=== PATIENT | female | born 1935 | race Two or more races ===

== ENCOUNTER 2023-01-14 17:31 | Inpatient (IN) | payer OTHER ==
[~2023-01-14] VITALS: Ht 137.2 cm; Wt 70.0 kg
[2023-01-14] MEDS ORDERED: SODIUM CHLORIDE 0.9% 1,000 ML IV ONE ×3 (18:00→22:15)
[2023-01-14 18:20] LABS: Basophils # (auto) 0.1 10 ^3/uL (0-0.2); Basophils % (auto) 0.5 % (0.0-2.0); Eosinophils # (auto) 0.1 10 ^3/uL (0-0.8); Eosinophils % (auto) 1.1 % (0.0-7.0); Hematocrit 50.1 % (36.0-46.0); Hemoglobin 16.8 g/dL (12.2-16.2); Lymphocytes # (auto) 1.7 10 ^3/uL (0.4-5.4); Lymphocytes % (auto) 14.9 % (10.0-50.0); Mean Corpuscular Hemoglobin 29.8 pg (28.0-32.0); Mean Corpuscular Hgb Conc. 33.4 g/dL (32.0-36.0); Mean Corpuscular Volume 89.2 fL (80.0-100.0); Monocytes # (auto) 0.5 10 ^3/uL (0-1.3); Monocytes % (auto) 4.7 % (0.0-12.0); Neutrophils # (auto) 9.1 10 ^3/uL (1.6-8.6); Neutrophils % (auto) 78.8 % (37.0-80.0); Nucleated Red Blood Cells % 0.4 %; Red Blood Cells 5.62 10^6/uL (4.0-5.20); Red Cell Distribution Width 15.7 % (11.8-14.3); White Blood Cell 11.5 10^3/uL (4.4-10.8)
[2023-01-14 18:44] LABS: Albumin 4.4 g/dL (3.2-4.8); Alkaline Phosphatase 74 U/L (46-116); Anion Gap 10 (5-15); Aspartate Aminotransferase 27 U/L (13-40); BUN/Creatinine Ratio 16.1 (10.0-20.0); Bilirubin, Total 1.2 mg/dL (0.2-1.0); Blood Urea Nitrogen 34 mg/dL (9-23); Calcium 9.4 mg/dL (8.7-10.4); Carbon Dioxide 25 mmol/L (20-30); Chloride 101 mmol/L (98-107); Glucose 166 mg/dL (74-106); Potassium 4.9 mmol/L (3.5-5.1); Sodium 136 mmol/L (136-145); Total Protein 7.8 g/dL (5.7-8.2)
[2023-01-14 18:48] LABS: Alanine Aminotransferase < 9 U/L (7-40)
[2023-01-14 19:44] LABS: Urine Bacteria MOD /hpf (None Seen); Urine Blood Negative /uL (Negative); Urine Clarity HAZY (Clear); Urine Color Colorless (Yellow); Urine Mucus FEW (None Seen); Urine Protein, UAD Negative (Negative); Urine Specific Gravity 1.011 (1.001-1.035); Urine Urobilinogen Normal (Negative); Urine WBC 59 /hpf (0 - 5)
[2023-01-14] MEDS ORDERED: ONDANSETRON HCL 4 MG/2 ML VIAL IV ONE (21:45)
[2023-01-14] MEDS ORDERED: cefTRIAXone 1GM/50ML D5W 50 ML IV SCH (21:45)
[2023-01-14] MEDS ORDERED: SODIUM CHLORIDE 0.9% 2,050 ML IV ONE (21:45)
[2023-01-14] MEDS ORDERED: ALBUMIN 25% 50 ML IV ONE (22:00)
[2023-01-14] MEDS ORDERED: MORPHINE SULFATE INJ 2 MG/ml SYRG IV PRN (22:30)
[2023-01-14] MEDS ORDERED: ONDANSETRON HCL 4 MG/2 ML VIAL IV PRN (22:30)
[2023-01-14] MEDS ORDERED: ALBUTEROL SULF 2.5 MG/0.5ML(0.5%) NEB SOLN NEB PRN (22:30)
[2023-01-14] MEDS ORDERED: NITROGLYCERIN 0.4 MG SL TAB SL PRN (22:30)
[2023-01-14] MEDS ORDERED: ACETAMINOPHEN 325 MG TAB PO PRN (22:30)
[2023-01-14 22:48] VITALS: BP 134/70; PULSE 80; RESP 18; O2SAT 97
[2023-01-14 22:57] LABS: INR 1.1 (0.9-1.15); Partial Thromboplastin Time 30.5 SEC (24.5-34.5); Prothrombin Time 11.5 sec (9.3-11.8)
[2023-01-14 23:12] VITALS: O2SAT 97
[2023-01-14] MEDS: cefTRIAXone 1GM/50ML D5W 50 ML IV SCH (23:16)
[2023-01-15] VITALS (9 sets, daily range): BP systolic 85–138; BP diastolic 49–85; PULSE 63–90; RESP 18–22; TEMP 97.6–98; O2SAT 90–97
[2023-01-15] MEDS: PIPERACILLIN-TAZOB 3.375GM 100 ML IV SCH ×2 (00:05→06:38)
[2023-01-15 05:33] LABS: Chloride 107 mmol/L (98-107); Potassium 4.9 mmol/L (3.5-5.1); Sodium 142 mmol/L (136-145)
[2023-01-15 05:34] LABS: Anion Gap 7 (5-15); Carbon Dioxide 28 mmol/L (20-30)
[2023-01-15 05:35] LABS: Calcium 8.8 mg/dL (8.5-10.1)
[2023-01-15 05:38] LABS: Basophils # (auto) 0 10 ^3/uL (0-0.2); Basophils % (auto) 0.5 % (0.0-2.0); Eosinophils # (auto) 0.2 10 ^3/uL (0-0.8); Eosinophils % (auto) 1.8 % (0.0-7.0); Hematocrit 45.4 % (36.0-46.0); Hemoglobin 15.2 g/dL (12.2-16.2); Lymphocytes # (auto) 1.5 10 ^3/uL (0.4-5.4); Lymphocytes % (auto) 16.7 % (10.0-50.0); Mean Corpuscular Hgb Conc. 33.4 g/dL (32.0-36.0); Mean Corpuscular Volume 89.8 fL (80.0-100.0); Monocytes # (auto) 0.5 10 ^3/uL (0-1.3); Monocytes % (auto) 5.5 % (0.0-12.0); Neutrophils # (auto) 6.8 10 ^3/uL (1.6-8.6); Neutrophils % (auto) 75.5 % (37.0-80.0); Nucleated Red Blood Cells % 0.1 %; Red Blood Cells 5.05 10^6/uL (4.0-5.20); Red Cell Distribution Width 15.6 % (11.8-14.3)
[2023-01-15 05:39] LABS: Glucose 78 mg/dL (74-106)
[2023-01-15 05:51] LABS: BUN/Creatinine Ratio 12.6 (10.0-20.0); Blood Urea Nitrogen 24 mg/dL (9-23)
[2023-01-15] MEDS ORDERED: LEV75T PO (08:15)
[2023-01-15] MEDS ORDERED: GLIP5TAB12 PO ×2 (08:15→17:07)
[2023-01-15] MEDS ORDERED: APIX2.5T PO ×2 (08:15→17:07)
[2023-01-15] MEDS ORDERED: POTA10TA51 PO ×2 (08:15→17:07)
[2023-01-15] MEDS ORDERED: LEV50T PO (08:15)
[2023-01-15] MEDS ORDERED: PRAV20TA3 PO ×2 (08:15→17:07)
[2023-01-15] MEDS ORDERED: FURO40TA4 PO ×2 (08:15→17:07)
[2023-01-15] MEDS ORDERED: METO25TA93 PO ×2 (08:15→17:07)
[2023-01-15] MEDS ORDERED: CLOP75TA70 PO ×2 (08:15→17:07)
[2023-01-15] MEDS: FUROSEMIDE 40 MG TAB PO SCH (10:00)
[2023-01-15] MEDS: APIXABAN 2.5 MG TAB PO SCH ×2 (10:02→21:11)
[2023-01-15] MEDS: cefTRIAXone 1GM/50ML D5W 50 ML IV SCH (10:03)
[2023-01-15] MEDS ORDERED: DEXTROSE (50%) 50ML SYRG IV PRN (13:15)
[2023-01-15 14:04] LABS: Folate (Folic Acid) 15.83 ng/mL (>5.38)
[2023-01-15 14:51] LABS: Triglycerides 182 mg/dL (< 150)
[2023-01-15 14:52] LABS: LDL Cholesterol 54 mg/dL (< 100)
[2023-01-15 14:53] LABS: Cholesterol 109 mg/dL (< 200); HDL Cholesterol 28 mg/dL (40-59)
[2023-01-15] MEDS: ACCU-CHEK COMFORT CURVE STRIP VI SCH ×2 (17:00→21:11)
[2023-01-15] MEDS: InsuLIN REG 1unit/0.01ml Soln (100units/ml) SC SCH ×2 (17:00→21:13)
[2023-01-15] MEDS ORDERED: LOSA50TA46 PO (17:07)
[2023-01-15] MEDS ORDERED: LISI-275 PO (17:07)
[2023-01-15 18:43] LABS: Creatinine, Urine 43.64 mg/dL (30.0-125.0)
[2023-01-15] MEDS: ATORVASTATIN 20 MG TAB PO SCH (21:11)
[2023-01-16] VITALS (10 sets, daily range): BP systolic 74–148; BP diastolic 41–80; PULSE 60–88; RESP 16–18; TEMP 97.5–98; O2SAT 93–97
[2023-01-16] MEDS: InsuLIN REG 1unit/0.01ml Soln (100units/ml) SC SCH ×4 (05:56→21:09)
[2023-01-16] MEDS: ACCU-CHEK COMFORT CURVE STRIP VI SCH ×4 (05:56→21:09)
[2023-01-16 06:25] LABS: Albumin 3.7 g/dL (3.2-4.8); Alkaline Phosphatase 60 U/L (46-116); Aspartate Aminotransferase 24 U/L (13-40); BUN/Creatinine Ratio 7.8 (10.0-20.0); Bilirubin, Total 1.4 mg/dL (0.2-1.0); Blood Urea Nitrogen 14 mg/dL (9-23); Calcium 8.9 mg/dL (8.7-10.4); Chloride 107 mmol/L (98-107); Glucose 97 mg/dL (74-106); Potassium 4.3 mmol/L (3.5-5.1); Sodium 140 mmol/L (136-145); Total Protein 6.7 g/dL (5.7-8.2)
[2023-01-16 06:29] LABS: Basophils # (auto) 0.1 10 ^3/uL (0-0.2); Basophils % (auto) 0.7 % (0.0-2.0); Eosinophils # (auto) 0.2 10 ^3/uL (0-0.8); Hematocrit 47.5 % (36.0-46.0); Hemoglobin 15.4 g/dL (12.2-16.2); Lymphocytes # (auto) 1.1 10 ^3/uL (0.4-5.4); Lymphocytes % (auto) 13.4 % (10.0-50.0); Mean Corpuscular Hemoglobin 29.7 pg (28.0-32.0); Mean Corpuscular Hgb Conc. 32.5 g/dL (32.0-36.0); Mean Corpuscular Volume 91.5 fL (80.0-100.0); Monocytes # (auto) 0.4 10 ^3/uL (0-1.3); Monocytes % (auto) 5.3 % (0.0-12.0); Neutrophils # (auto) 6.2 10 ^3/uL (1.6-8.6); Neutrophils % (auto) 78.6 % (37.0-80.0); Nucleated Red Blood Cells % 0.1 %; Red Blood Cells 5.19 10^6/uL (4.0-5.20); White Blood Cell 7.9 10^3/uL (4.4-10.8)
[2023-01-16 07:00] LABS: Alanine Aminotransferase < 9 U/L (7-40)
[2023-01-16 07:19] LABS: Anion Gap 10 (5-15); Carbon Dioxide 23 mmol/L (20-30)
[2023-01-16] MEDS: LEVOTHYROXINE SODIUM 50 MCG TAB PO SCH (08:32)
[2023-01-16] MEDS: LEVOTHYROXINE SODIUM 25 MCG TAB PO SCH (08:32)
[2023-01-16] MEDS: FUROSEMIDE 40 MG TAB PO SCH (08:33)
[2023-01-16] MEDS: APIXABAN 2.5 MG TAB PO SCH ×2 (08:35→21:09)
[2023-01-16] MEDS: guaiFENesin-DM 100/10mg/5ml SYR PO SCH ×4 (09:39→18:00)
[2023-01-16] MEDS: cefTRIAXone 1GM/50ML D5W 50 ML IV SCH (09:39)
[2023-01-16] MEDS ORDERED: LEVOTHYROXINE SODIUM 50 MCG TAB PO SCH (10:00)
[2023-01-16] MEDS ORDERED: LEVOTHYROXINE SODIUM 25 MCG TAB PO SCH (10:00)
[2023-01-16] MEDS ORDERED: PRAVASTATIN SODIUM 20 MG TAB PO SCH (10:00)
[2023-01-16] MEDS: METOPROLOL SUCCINATE XL 50 MG TAB PO SCH (10:28)
[2023-01-16] MEDS: LISINOPRIL 5 MG TAB PO SCH (11:43)
[2023-01-16] MEDS: ATORVASTATIN 20 MG TAB PO SCH (21:10)
[2023-01-17] VITALS (10 sets, daily range): BP systolic 64–123; BP diastolic 38–72; PULSE 7–85; RESP 18; TEMP 97.3–97.9; O2SAT 94–96
[2023-01-17] MEDS: guaiFENesin-DM 100/10mg/5ml SYR PO SCH ×2 (00:15→04:40)
[2023-01-17 05:23] LABS: Basophils # (auto) 0 10 ^3/uL (0-0.2); Basophils % (auto) 0.5 % (0.0-2.0); Eosinophils # (auto) 0.2 10 ^3/uL (0-0.8); Hematocrit 47.1 % (36.0-46.0); Mean Corpuscular Hemoglobin 30.4 pg (28.0-32.0); Mean Corpuscular Volume 89.4 fL (80.0-100.0); Monocytes # (auto) 0.4 10 ^3/uL (0-1.3); Monocytes % (auto) 5.9 % (0.0-12.0); Neutrophils # (auto) 5.9 10 ^3/uL (1.6-8.6); Neutrophils % (auto) 78.6 % (37.0-80.0); Nucleated Red Blood Cells % 0.2 %; Red Blood Cells 5.27 10^6/uL (4.0-5.20); Red Cell Distribution Width 15.5 % (11.8-14.3); White Blood Cell 7.5 10^3/uL (4.4-10.8)
[2023-01-17 05:41] LABS: Albumin 3.9 g/dL (3.2-4.8); Alkaline Phosphatase 68 U/L (46-116); Anion Gap 9 (5-15); Aspartate Aminotransferase 23 U/L (13-40); BUN/Creatinine Ratio 12.4 (10.0-20.0); Bilirubin, Total 2.1 mg/dL (0.2-1.0); Blood Urea Nitrogen 21 mg/dL (9-23); Calcium 9.2 mg/dL (8.7-10.4); Carbon Dioxide 28 mmol/L (20-30); Chloride 104 mmol/L (98-107); Glucose 113 mg/dL (74-106); Magnesium 2.3 mg/dL (1.6-2.6); Sodium 141 mmol/L (136-145)
[2023-01-17 05:42] LABS: Total Protein 6.6 g/dL (5.7-8.2)
[2023-01-17 05:48] LABS: Alanine Aminotransferase < 9 U/L (7-40)
[2023-01-17] MEDS: LEVOTHYROXINE SODIUM 25 MCG TAB PO SCH (05:48)
[2023-01-17] MEDS: InsuLIN REG 1unit/0.01ml Soln (100units/ml) SC SCH ×4 (05:48→17:48)
[2023-01-17] MEDS: LEVOTHYROXINE SODIUM 50 MCG TAB PO SCH (05:48)
[2023-01-17] MEDS: ACCU-CHEK COMFORT CURVE STRIP VI SCH ×4 (05:48→17:47)
[2023-01-17] MEDS ORDERED: guaiFENesin-DM 100/10mg/5ml SYR PO PRN (07:15)
[2023-01-17] MEDS: cefTRIAXone 1GM/50ML D5W 50 ML IV SCH (10:44)
[2023-01-17] MEDS: APIXABAN 2.5 MG TAB PO SCH (10:44)
[2023-01-17] MEDS: LISINOPRIL 5 MG TAB PO SCH (10:45)
[2023-01-17] MEDS: FUROSEMIDE 40 MG TAB PO SCH (10:45)
[2023-01-17] MEDS: METOPROLOL SUCCINATE XL 50 MG TAB PO SCH (10:46)
[2023-01-17] MEDS ORDERED: FLUCONAZOLE 100 MG TAB PO SCH (11:45)
[2023-01-17] MEDS ORDERED: CEPH250C PO (13:31)
[2023-01-17] MEDS ORDERED: FLUC200T50 PO (13:32)
[2023-01-18] MEDS ORDERED: FUROSEMIDE 20 MG TAB PO SCH (10:00)
== END 2023-01-17 18:20 | disposition home or self-care (01) | DRG 682 ==
LOC: ER 17:31 → TELE 22:31 → TELE-WESTW 23:13 → WEST WING 01-15 21:31
PROVIDERS: ADMIT Internal Medicine; ATTEND Student in an Organized Health Care Education/Training Program
DX: N17.0 Acute kidney failure with tubular necrosis (principal); I50.23 Acute on chronic systolic (congestive) heart failure; I13.0 Hypertensive heart and chronic kidney disease with heart failure and stage 1 through stage 4 chronic kidney disease, or unspecified chronic kidney disease; I65.21 Occlusion and stenosis of right carotid artery; N18.4 Chronic kidney disease, stage 4 (severe); N13.6 Pyonephrosis; E78.5 Hyperlipidemia, unspecified; E11.22 Type 2 diabetes mellitus with diabetic chronic kidney disease; J44.9 Chronic obstructive pulmonary disease, unspecified; I48.91 Unspecified atrial fibrillation; I27.20 Pulmonary hypertension, unspecified; E03.9 Hypothyroidism, unspecified; N28.1 Cyst of kidney, acquired; E83.41 Hypermagnesemia; I25.10 Atherosclerotic heart disease of native coronary artery without angina pectoris; I08.1 Rheumatic disorders of both mitral and tricuspid valves; I25.2 Old myocardial infarction; Z79.84 Long term (current) use of oral hypoglycemic drugs; Z79.01 Long term (current) use of anticoagulants; Z98.61 Coronary angioplasty status
CPT/HCPCS: 36415; 70450; 70547; 71250; 76775; 80048; 80053; 80061; 81001; 82306; 82570; 82607; 82746; 82962; 83036; 83605; 83735; 83880; 83970; 84100; 84300; 84443; 84484; 85025; 85610; 85730; 87040; 87086; 93005; 93306; 93886; 96361; 96365; 96367; G0378; J0696; J1815; J2543

== ENCOUNTER 2023-01-29 11:46 | Inpatient (IN) | payer OTHER ==
[~2023-01-29] VITALS: Ht 162.6 cm; Wt 68.2 kg
[~2023-01-29 11:46] MED LIST: APIX2.5T PO; CEPH250C PO; CLOP75TA70 PO; FLUC200T50 PO; FURO40TA4 PO; GLIP5TAB12 PO; LOSA50TA46 PO; METO25TA93 PO; POTA10TA51 PO; PRAV20TA3 PO
[2023-01-29 12:42] LABS: Basophils # (auto) 0 10 ^3/uL (0-0.2); Basophils % (auto) 0.7 % (0.0-2.0); Eosinophils # (auto) 0.2 10 ^3/uL (0-0.8); Eosinophils % (auto) 2.6 % (0.0-7.0); Hematocrit 48.5 % (36.0-46.0); Hemoglobin 16.2 g/dL (12.2-16.2); Lymphocytes # (auto) 1.4 10 ^3/uL (0.4-5.4); Lymphocytes % (auto) 21.9 % (10.0-50.0); Mean Corpuscular Hemoglobin 29.8 pg (28.0-32.0); Mean Corpuscular Hgb Conc. 33.4 g/dL (32.0-36.0); Mean Corpuscular Volume 89.1 fL (80.0-100.0); Monocytes # (auto) 0.5 10 ^3/uL (0-1.3); Monocytes % (auto) 8.1 % (0.0-12.0); Neutrophils # (auto) 4.4 10 ^3/uL (1.6-8.6); Neutrophils % (auto) 66.7 % (37.0-80.0); Nucleated Red Blood Cells % 0.3 %; Red Blood Cells 5.44 10^6/uL (4.0-5.20); White Blood Cell 6.6 10^3/uL (4.4-10.8)
[2023-01-29 12:49] LABS: Urine Bacteria NONE SEEN /hpf (None Seen); Urine Blood 1+ /uL (Negative); Urine Clarity HAZY (Clear); Urine Color Yellow (Yellow); Urine Mucus FEW (None Seen); Urine Protein, UAD 1+ (Negative); Urine Specific Gravity 1.015 (1.001-1.035); Urine Urobilinogen Normal (Negative); Urine WBC 794 /hpf (0 - 5)
[2023-01-29 13:00] LABS: Albumin 4.2 g/dL (3.2-4.8); Alkaline Phosphatase 72 U/L (46-116); Anion Gap 10 (5-15); Aspartate Aminotransferase 24 U/L (13-40); Blood Urea Nitrogen 25 mg/dL (9-23); Calcium 9.6 mg/dL (8.5-10.1); Carbon Dioxide 28 mmol/L (20-30); Chloride 102 mmol/L (98-107); Glucose 136 mg/dL (74-106); Potassium 4.9 mmol/L (3.5-5.1); Sodium 140 mmol/L (136-145)
[2023-01-29 13:01] LABS: Bilirubin, Total 2.1 mg/dL (0.2-1.0)
[2023-01-29 13:12] LABS: Alanine Aminotransferase < 9 U/L (7-40)
[2023-01-29 13:24] LABS: Magnesium 2.3 mg/dL (1.6-2.6)
[2023-01-29] MEDS ORDERED: cefTRIAXone 1GM/50ML D5W 50 ML IV ONE (15:15)
[2023-01-29] MEDS ORDERED: NITROGLYCERIN 0.4 MG SL TAB SL PRN (17:30)
[2023-01-29] MEDS ORDERED: MORPHINE SULFATE INJ 2 MG/ml SYRG IV PRN (17:30)
[2023-01-29] MEDS ORDERED: ACETAMINOPHEN 325 MG TAB PO PRN (17:30)
[2023-01-29] MEDS ORDERED: DEXTROSE (50%) 50ML SYRG IV PRN (17:30)
[2023-01-29] MEDS ORDERED: ALBUTEROL MEDNEB 2.5 mg/3ml NEB NEB PRN (17:45)
[2023-01-29 18:33] VITALS: O2SAT 96
[2023-01-29 19:00] VITALS: O2SAT 96
[2023-01-29 19:08] VITALS: BP 114/87; PULSE 93; RESP 22; TEMP 97.8; O2SAT 96
[2023-01-29 20:15] VITALS: O2SAT 98
[2023-01-29 21:58] LABS: Creatinine, Urine 174.78 mg/dL (30.0-125.0)
[2023-01-29 22:01] LABS: Protein, Urine 379.1 mg/dL (0.0-11.9)
[2023-01-29] MEDS: ACCU-CHEK COMFORT CURVE STRIP VI SCH (22:18)
[2023-01-29] MEDS: APIXABAN 2.5 MG TAB PO SCH (22:18)
[2023-01-29] MEDS: InsuLIN REG 1unit/0.01ml Soln (100units/ml) SC SCH (22:20)
[2023-01-30] VITALS (8 sets, daily range): BP systolic 105–114; BP diastolic 65–72; PULSE 54–88; RESP 17–20; TEMP 97.3–97.9; O2SAT 91–96
[2023-01-30 06:52] LABS: Basophils # (auto) 0 10 ^3/uL (0-0.2); Basophils % (auto) 0.6 % (0.0-2.0); Eosinophils # (auto) 0.1 10 ^3/uL (0-0.8); Hematocrit 45.5 % (36.0-46.0); Hemoglobin 15.3 g/dL (12.2-16.2); Lymphocytes # (auto) 1.4 10 ^3/uL (0.4-5.4); Lymphocytes % (auto) 22.5 % (10.0-50.0); Mean Corpuscular Hemoglobin 29.9 pg (28.0-32.0); Mean Corpuscular Hgb Conc. 33.6 g/dL (32.0-36.0); Monocytes # (auto) 0.6 10 ^3/uL (0-1.3); Monocytes % (auto) 9.7 % (0.0-12.0); Neutrophils # (auto) 3.9 10 ^3/uL (1.6-8.6); Neutrophils % (auto) 65.2 % (37.0-80.0); Nucleated Red Blood Cells % 0.1 %; Red Blood Cells 5.12 10^6/uL (4.0-5.20); Red Cell Distribution Width 16.2 % (11.8-14.3)
[2023-01-30 06:56] LABS: Albumin 3.9 g/dL (3.2-4.8); Alkaline Phosphatase 71 U/L (46-116); Anion Gap 10 (5-15); Aspartate Aminotransferase 18 U/L (13-40); BUN/Creatinine Ratio 10.2 (10.0-20.0); Bilirubin, Total 1.6 mg/dL (0.2-1.0); Blood Urea Nitrogen 22 mg/dL (9-23); Calcium 9.4 mg/dL (8.7-10.4); Carbon Dioxide 28 mmol/L (20-30); Chloride 101 mmol/L (98-107); Glucose 70 mg/dL (74-106); Potassium 3.9 mmol/L (3.5-5.1); Sodium 139 mmol/L (136-145)
[2023-01-30 06:57] LABS: Total Protein 6.9 g/dL (5.7-8.2)
[2023-01-30] MEDS: InsuLIN REG 1unit/0.01ml Soln (100units/ml) SC SCH ×4 (07:00→21:13)
[2023-01-30 07:03] LABS: Alanine Aminotransferase < 9 U/L (7-40)
[2023-01-30] MEDS: ACCU-CHEK COMFORT CURVE STRIP VI SCH ×4 (07:11→21:13)
[2023-01-30] MEDS: cefTRIAXone 1GM/50ML D5W 50 ML IV SCH (09:15)
[2023-01-30] MEDS ORDERED: ENOXAPARIN SOD 40 MG/0.4 ML SYRINGE SC SCH (10:00)
[2023-01-30] MEDS: LOSARTAN POTASSIUM 50 MG TAB PO SCH (12:00)
[2023-01-30] MEDS: METOPROLOL SUCCINATE XL 50 MG TAB PO SCH (12:00)
[2023-01-30] MEDS: FUROSEMIDE 40 MG TAB PO SCH (12:41)
[2023-01-30] MEDS: APIXABAN 2.5 MG TAB PO SCH ×2 (12:42→21:10)
[2023-01-30] MEDS: CLOPIDOGREL BISULFATE 75 MG TAB PO SCH (12:42)
[2023-01-30] MEDS: PRAVASTATIN SODIUM 20 MG TAB PO SCH (12:42)
[2023-01-31 05:00] VITALS: BP 110/73; PULSE 66; RESP 18; TEMP 98; O2SAT 99
[2023-01-31] MEDS: InsuLIN REG 1unit/0.01ml Soln (100units/ml) SC SCH ×2 (06:42→12:05)
[2023-01-31] MEDS: ACCU-CHEK COMFORT CURVE STRIP VI SCH ×2 (06:42→11:53)
[2023-01-31 07:22] VITALS: O2SAT 95
[2023-01-31 08:00] VITALS: BP 107/62; PULSE 67; RESP 20; TEMP 97.4; O2SAT 99
[2023-01-31 08:30] VITALS: PULSE 86; RESP 18; O2SAT 95
[2023-01-31] MEDS ORDERED: CIPR-273 PO (09:55)
[2023-01-31] MEDS: cefTRIAXone 1GM/50ML D5W 50 ML IV SCH (11:00)
[2023-01-31] MEDS: APIXABAN 2.5 MG TAB PO SCH (11:44)
[2023-01-31] MEDS: METOPROLOL SUCCINATE XL 50 MG TAB PO SCH (11:44)
[2023-01-31] MEDS: FUROSEMIDE 40 MG TAB PO SCH (11:44)
[2023-01-31] MEDS: LOSARTAN POTASSIUM 50 MG TAB PO SCH (11:46)
[2023-01-31] MEDS: CLOPIDOGREL BISULFATE 75 MG TAB PO SCH (11:46)
[2023-01-31] MEDS: PRAVASTATIN SODIUM 20 MG TAB PO SCH (11:47)
== END 2023-01-31 12:00 | disposition home or self-care (01) | DRG 690 ==
LOC: ER 11:46 → TELE 17:22 → TELE-CENTR 01-30 09:41
PROVIDERS: ADMIT Nurse Practitioner Family; ATTEND Internal Medicine Geriatric Medicine
DX: N39.0 Urinary tract infection, site not specified (principal); I13.0 Hypertensive heart and chronic kidney disease with heart failure and stage 1 through stage 4 chronic kidney disease, or unspecified chronic kidney disease; I50.32 Chronic diastolic (congestive) heart failure; N17.9 Acute kidney failure, unspecified; N18.4 Chronic kidney disease, stage 4 (severe); R06.03 Acute respiratory distress; J44.9 Chronic obstructive pulmonary disease, unspecified; I25.10 Atherosclerotic heart disease of native coronary artery without angina pectoris; E78.5 Hyperlipidemia, unspecified; E11.22 Type 2 diabetes mellitus with diabetic chronic kidney disease; Z95.5 Presence of coronary angioplasty implant and graft; I25.2 Old myocardial infarction; Z87.891 Personal history of nicotine dependence
CPT/HCPCS: 36415; 71045; 78582; 80053; 81001; 82570; 82962; 83735; 83880; 83930; 84156; 84300; 84484; 85025; 85379; 87081; 87086; 93005; 93970; 97163; 99291; G0378; J0696; J1815